=== PATIENT | male | born 1950 | race Caucasian/White ===

== ENCOUNTER 2018-11-28 20:47 | Observation (INO) | payer MEDICARE ==
[2018-11-28] MEDS ORDERED: ACETAMINOPHEN 325 MG TABLET PO ONE (21:04)
[2018-11-28] MEDS ORDERED: IPRATROPIUM/ALBUTEROL 0.5-2.5 MG/3 ML AMPUL NEB ONE (21:05)
[2018-11-28] MEDS ORDERED: METHYLPREDNISOLONE INJ 125 MG/2 ML SDV IV ONE (21:05)
--- NOTE | 2018-11-28 22:14 | RADIOLOGY REPORT (SQ) ---
EXAM DESCRIPTION: XR CHEST 2 VIEWS COMPLETED DATE/TME: 11/28/2018 21:05 CLINICAL HISTORY: 68 years, Male, fever, sepsis EXAM DESCRIPTION: CLINICAL HISTORY: fever, sepsis COMPARISON: None. FINDINGS: Two views of the chest are submitted. There is a small right pleural effusion. There is atelectasis at the right anterior lung base. Cardiac silhouette appears normal. No other focal parenchymal or pleural disease. No acute bony abnormality. There is no significant pulmonary vascular engorgement. IMPRESSION: Small right pleural effusion best seen on the lateral view.
--- NOTE | 2018-11-28 22:21 | ER Document Report ---
ED Medical Screen (RME) - General Chief Complaint: Shortness Of Breath Stated Complaint: SHORTNESS OF BREATH,RACING HEART,CHILLS Time Seen by Provider: 11/28/18 22:13 TRAVEL OUTSIDE OF THE [place] IN LAST 30 DAYS: No - HPI Notes: 11/28/18 22:27 68 YEAR OLD MALE TO THE ED WITH WITH C/O SHORTNESS OF BREATH THAT BEGAN SUDDENLY TONIGHT. STATES THAT HE STARTED TO FEEL POORLY THIS AFTERNOON SO HE DECIDED TO LAY DOWN. STATES THAT HE GOT PROGRESSIVELY MORE SOB WHEN HE WAS LAYING DOWN. STATES THAT HE WAS REALLY OUT OF BREATH JUST PRIOR TO COMING TO THE ER. HE HAS NO HX OF LUNG DISEASE. HE IS NOT ON BLOOD THINNERS. DOES ADMIT HE JUST DROVE DOWN FROM [place]. HE DENIES ANY NEW LEG SWELLING. STATES THAT HE HAS NOT BEEN COUGHING BUT HIS BODY HAS BEEN HURTING TODAY. DENIES ANY SICK CONTACTS. FORMER SMOKER. Physical Exam - Vital signs Vitals: Temp Pulse Resp BP Pulse Ox 101.9 F H 135 H 18 151/76 H 92 11/28/18 20:58 11/28/18 20:58 11/28/18 20:58 11/28/18 20:58 11/28/18 20:58 Interpretation: Tachycardic, Febrile - Respiratory Respiratory status: Other - SLIGHTLY BREATHY WHEN BREATHING -- WALKING SEEMS TO MAKE IT A LITTLE WORSE. NO ACCESSORY MUSCLE USE. NO TRIPODING, NO DIAPHORESIS. Breath sounds: Decreased air movement. No: Rales, Rhonchi, Wheezing Chest palpation: Normal Course - Vital Signs Vital signs: Temp Pulse Resp BP Pulse Ox 101.9 F H 135 H 18 151/76 H 92 11/28/18 20:58 11/28/18 20:58 11/28/18 20:58 11/28/18 20:58 11/28/18 20:58
[2018-11-28] MEDS ORDERED: NORMAL SALINE 500 ML IV ONE (22:26)
--- NOTE | 2018-11-28 23:03 | ER Document Report ---
ED General - General Chief Complaint: Shortness Of Breath Stated Complaint: SHORTNESS OF BREATH,RACING HEART,CHILLS Time Seen by Provider: 11/28/18 22:13 Notes: Patient is a 68-year-old male that comes to the emergency department for chief complaint of weakness, shortness of breath, chills that started this evening. He was found to have a fever. He denies abdominal pain, vomiting, chest pain, dysuria, flank pain. He is visiting here from [place] with his family, he has a history of hypertension, hyperlipidemia, neurogenic bladder with self- catheterization, PHYLLIS. He has had his pneumonia vaccine reportedly. He is a former smoker. He denies cardiac history. TRAVEL OUTSIDE OF THE [place] IN LAST 30 DAYS: No - Related Data Allergies/Adverse Reactions: aspirin Allergy (Verified 11/28/18 22:31) tamsulosin [From Flomax] Allergy (Verified 11/29/18 00:35) Past Medical History - General Information source: Patient, Relative - Social History Smoking Status: Former Smoker Frequency of alcohol use: None Drug Abuse: None Lives with: Family Family History: Reviewed & Not Pertinent - Past Medical History Cardiac Medical History: Reports: Hx Hypercholesterolemia, Hx Hypertension Pulmonary Medical History: Reports: Hx Sleep Apnea Renal/ Medical History: Reports: Other - Neurogenic bladder, self- catheterization status - Immunizations Hx Diphtheria, Pertussis, Tetanus Vaccination: Yes Review of Systems - Review of Systems Constitutional: See HPI EENT: No symptoms reported Cardiovascular: No symptoms reported Respiratory: See HPI Gastrointestinal: No symptoms reported Genitourinary: See HPI Male Genitourinary: No symptoms reported Musculoskeletal: No symptoms reported Skin: No symptoms reported Hematologic/Lymphatic: No symptoms reported Neurological/Psychological: No symptoms reported Physical Exam - Vital signs Vitals: Temp Pulse Resp BP Pulse Ox 101.9 F H 135 H 18 151/76 H 92 11/28/18 20:58 11/28/18 20:58 11/28/18 20:58 11/28/18 20:58 11/28/18 20:58 - Notes Notes: GENERAL: Alert and interactive, flushed, mildly ill-appearing HEAD: Normocephalic, atraumatic. EYES: Pupils equal, round, and reactive to light. Extraocular movements intact. ENT: Oral mucosa moist, tongue midline. Oropharynx unremarkable. Airway patent. Nares patent, no nasal septal hematoma, TM's intact. NECK: Full range of motion. Supple. Trachea midline. LUNGS: Clear to auscultation bilaterally, no wheezes, rales, or rhonchi. No respiratory distress. No tachypnea. HEART: Borderline tachycardia, normal rhythm, no murmur. ABDOMEN: Soft, non-tender. Non-distended. Bowel sounds present in all 4 quadrants. GENITOURINARY: No swelling, tenderness, or concerning findings noted. EXTREMITIES: Moves all 4 extremities spontaneously. No edema, normal radial and dorsalis pedis pulses bilaterally. No cyanosis. BACK: no cervical, thoracic, lumbar midline tenderness. No saddle anesthesia, normal distal neurovascular exam. Moves all extremities in full range of motion. NEUROLOGICAL: Alert and oriented x3. Normal speech. Cranial nerves II through XII grossly intact. PSYCH: Normal affect, normal mood. SKIN: Flushed but otherwise unremarkable Course - Re-evaluation Re-evalutation: Initially patient tachycardic, febrile, flushed, having chills. After Tylenol, IV fluids, patient is significantly improved in appearance. He is only borderline tachycardic now. Lungs clear, no hypoxia on my evaluation, no respiratory distress. Because of his history of self-catheterization I do suspect urinary tract infection as the most likely source. His abdomen is soft and benign. CBC shows leukocyte doses at 12.9 with elevation of neutrophils but no bandemia. Lactic acid is 2.2. Blood cultures and urine cultures pending. Chest x-ray is unremarkable except for possible small effusion, no noted consolidation. Urine does show infection on catheterized sample. Starting on Rocephin. Discussed with patient and family. Because of his age, fever, tachycardia, infection, and lack of local follow-up because he is out of town patient will be discussed with hospitalist for admission. Discussed with Dr. Contreras, hospitalist, patient admitted to observation status. - Vital Signs Vital signs: Temp Pulse Resp BP Pulse Ox 97.9 F 86 18 108/55 L 97 11/29/18 03:42 11/29/18 03:42 11/29/18 03:42 11/29/18 03:42 11/29/18 03:42 - Laboratory Result Diagrams: 11/29/18 05:24 11/29/18 05:24 Laboratory results interpreted by me: 11/28/18 11/28/18 11/28/18 21:11 22:50 22:50 WBC 12.9 H Seg Neuts % (Manual) 82 H Lymphocytes % (Manual) 9 L Abs Neuts (Manual) 11.2 H BUN 22 H Glucose 120 H Lactic Acid TSH Urine Blood SMALL H Urine Nitrite POSITIVE H Ur Leukocyte Esterase MODERATE H 11/28/18 11/28/18 22:50 22:50 WBC Seg Neuts % (Manual) Lymphocytes % (Manual) Abs Neuts (Manual) BUN Glucose Lactic Acid 2.2 H TSH 7.21 H Urine Blood Urine Nitrite Ur Leukocyte Esterase Discharge - Discharge Clinical Impression: Chills, Tachycardia Fever Qualifiers: Fever type: unspecified Qualified Code(s): R50.9 - Fever, unspecified Urinary tract infection Qualifiers: Urinary tract infection type: site unspecified Hematuria presence: without hematuria Qualified Code(s): N39.0 - Urinary tract infection, site not specified Condition: Stable Disposition: ADMITTED OBSERVATION Admitting Provider: Diane (Hospitalist) Unit Admitted: Telemetry
[2018-11-28] MEDS ORDERED: NORMAL SALINE 1000 ML 1,000 ML IV ONE (23:04)
[2018-11-28 23:08] LABS: VENOUS BLOOD BASE EXCESS 0.5 mmol/L; VENOUS BLOOD PCO2 40.1 mmHg (35-63); VENOUS BLOOD PH 7.41 (7.30-7.42)
[2018-11-28] MEDS ORDERED: ACETAMINOPHEN 325 MG TABLET ONE (23:08)
[2018-11-28 23:10] LABS: HEMATOCRIT 40.8 % (37.9-51.0); MEAN CORPUSCULAR HEMOGLOBIN 30.6 pg (27.0-33.4); MEAN CORPUSCULAR HGB CONC 34.2 g/dL (32.0-36.0); MEAN CORPUSCULAR VOLUME 89 fl (80-97); PLATELET COUNT 154 10^3/uL (150-450); RED BLOOD COUNT 4.57 10^6/uL (4.35-5.55); RED CELL DISTRIBUTION WIDTH 13.4 % (11.5-14.0); WHITE BLOOD COUNT 12.9 10^3/uL (4.0-10.5)
[2018-11-28] MEDS: ALBUTEROL SULFATE 0.083% NEB 2.5 MG/3 ML AMPUL NEB SCH (23:10)
[2018-11-28 23:14] LABS: INTERNATIONAL RATION (INR) 1.05; PROTHROMBIN TIME 13.7 SEC (11.4-15.4)
[2018-11-28 23:30] LABS: ALANINE AMINOTRANSFERASE 32 U/L (21-72); ALBUMIN 4.4 g/dL (3.5-5.0); ALKALINE PHOSPHATASE 47 U/L (38-126); ANION GAP 10 (5-19); ASPARTATE AMINO TRANSFERASE 33 U/L (17-59); BILIRUBIN,DIRECT 0.2 mg/dL (0.0-0.4); BILIRUBIN,TOTAL 0.8 mg/dL (0.2-1.3); BLOOD UREA NITROGEN 22 mg/dL (7-20); CALCIUM 9.3 mg/dL (8.4-10.2); CARBON DIOXIDE 23 mmol/L (22-30); CHLORIDE 107 mmol/L (98-107); CREATINE KINASE 127 U/L (55-170); GLUCOSE 120 mg/dL (75-110); POTASSIUM 3.8 mmol/L (3.6-5.0); SODIUM 140.2 mmol/L (137-145); TOTAL PROTEIN 7.2 g/dL (6.3-8.2)
[2018-11-28 23:35] LABS: ABSOLUTE LYMPHOCYTES# (MANUAL) 1.2 10^3/uL (0.5-4.7); ABSOLUTE MONOCYTES # (MANUAL) 0.4 10^3/uL (0.1-1.4); BAND NEUTROPHILS % (MANUAL) 5 % (3-5); BASOPHILS % (MANUAL) 1 % (0-2); EOSINOPHILS % (MANUAL) 0 % (0-6); LYMPHOCYTES % (MANUAL) 9 % (13-45); MONOCYTES % (MANUAL) 3 % (3-13); RBC MORPHOLOGY COMMENT NORMO-CYTIC/CHROMIC; SEGMENTED NEUTROPHILS % (MAN) 82 % (42-78); TOTAL CELLS COUNTED 100
[2018-11-28 23:37] LABS: PLATELET COMMENT ADEQUATE
[2018-11-28 23:44] LABS: APPEARANCE,URINE SLIGHTLY-CLOUDY; BILIRUBIN,URINE NEGATIVE (NEGATIVE); COLOR,URINE YELLOW; GLUCOSE, URINE NEGATIVE (NEGATIVE); KETONES,URINE NEGATIVE (NEGATIVE); LEUKOCYTE ESTERASE,URINE MODERATE (NEGATIVE); NITRITE,URINE POSITIVE (NEGATIVE); PROTEIN,URINE NEGATIVE (NEGATIVE); URINE SPECIFIC GRAVITY 1.018; UROBILINOGEN,URINE NEGATIVE mg/dL (<2.0)
[2018-11-28 23:47] LABS: CREATINE KINASE MB 1.03 ng/mL (<4.55); NT PRO BNP 83 pg/mL (5-900)
[2018-11-28 23:48] LABS: TROPONIN I < 0.012 ng/mL
[2018-11-29] MEDS ORDERED: CEFTRIAXONE 1 GM/D5W RTU 1 GM/50 ML RTUPB IV ONE (00:01)
[2018-11-29] MEDS ORDERED: ONDANSETRON HCL INJ/PF 4 MG/2 ML SDV IV PRN (00:48)
[2018-11-29] MEDS ORDERED: MAG HYDROX/AL HYDROX/SIMETH SUSP 30 ML UDCUP PO PRN (00:48)
[2018-11-29] MEDS ORDERED: LEVALBUTEROL HCL NEB 0.63 MG/3 ML AMPUL NEB PRN (00:53)
[2018-11-29] MEDS ORDERED: MORPHINE SULFATE 10 MG/ML INJ IV PRN ×4 (00:53→01:00)
[2018-11-29] MEDS ORDERED: METOPROLOL TARTRATE PF/INJ 5 MG/5 ML SDV IV PRN (00:53)
[2018-11-29] MEDS ORDERED: ACETAMINOPHEN 325 MG TABLET PO PRN (00:53)
[2018-11-29 02:12] LABS: FREE T4 (FREE THYROXINE) 0.86 ng/dL (0.78-2.19)
[2018-11-29 02:25] LABS: THYROID STIMULATING HORMONE 7.21 uIU/mL (0.47-4.68)
[2018-11-29] MEDS: RINGERS SOLUTION,LACTATED 1,000 ML IV PRN ×2 (03:45→12:01)
--- NOTE | 2018-11-29 04:24 | PDOC H&P ---
History of Present Illness Admission Date/PCP: 11/29/2018 00:14 No local PCP Patient complains of: Chills History of Present Illness: HOMERO RICHARD is a 68 year old male who presented to the emergency room with acute severe chills. Patient admits that he started feeling "ill" on the after noon of 11/28/2018 and lay down in bed but found that his symptoms became progressively worse. His symptom complex consisted of moderate to severe malaise with weakness, moderate dyspnea and severe shaking chills. Because of the rapid progression of his symptoms he presented to the emergency room. He denies prior similar episodes and has not identified any aggravating or ameliorating factors for his chills. In the emergency room he was found to have a fever and his urine showed pyuria with a positive nitrite reaction. He was noted to have an additional history of self-catheterization for emptying his bladder due to complications of benign prostatic hypertrophy. He was subsequently admitted to the hospital for further evaluation and treatment on inpatient observation status. Past Medical History Cardiac Medical History: Reports: Hyperlipidema, Hypertension Denies: Coronary Artery Disease, Myocardial Infarction Pulmonary Medical History: Denies: Asthma, Chronic Obstructive Pulmonary Disease (COPD) EENT Medical History: Denies: Cataracts, Ears - Hearing aids Neurological Medical History: Denies: Multiple Sclerosis, Seizures Endocrine Medical History: Denies: Diabetes Mellitus Type 1, Diabetes Mellitus Type 2, Hyperthyroidism, Hypothyroidism Renal/ Medical History: Reports: Other - Benign prostatic hypertrophy Denies: Chronic Kidney Disease, Nephrolithiasis Renal/ History Note: Chronic bladder outlet obstruction requiring self-catheterization for purposes of voiding Malignancy Medical History: Reports: None GI Medical History: Denies: Cirrhosis, Hepatitis Musculoskeltal Medical History: Denies: Arthritis, Gout Skin Medical History: Denies: Eczema, Psoriasis Psychiatric Medical History: Denies: Alcohol Dependency, Substance Abuse, Tobacco Dependency Traumatic Medical History: Reports: None Hematology: Denies: Anemia, Bleeding Tendencies Infectious Medical History: Reports: None Past Surgical History Past Surgical History: Reports: Cardiac Catheterization, Herniorrhaphy Social History Information Source: Patient Lives with: Spouse/Significant other Smoking Status: Never Smoker Frequency of Alcohol Use: Occasional Hx Recreational Drug Use: No Drugs: None Hx Prescription Drug Abuse: No - Advance Directive Resuscitation Status: Full Code Surrogate healthcare decision maker:: Kindra Terry Family History Family History: DM, Hypertension. denies: CAD, Malignancy Parental Family History Reviewed: Yes Children Family History Reviewed: No Sibling(s) Family History Reviewed.: Yes Medication/Allergy Allergies/Adverse Reactions: aspirin Allergy (Verified 11/28/18 22:31) tamsulosin [From Flomax] Allergy (Verified 11/29/18 00:35) Review of Systems Constitutional: PRESENT: as per HPI, chills, weakness - Generalized weakness, other - Malaise Eyes: ABSENT: visual disturbances, other - Eye pain Ears: ABSENT: hearing changes, other - Ear pain Nose, Mouth, and Throat: ABSENT: mouth pain, sore throat Cardiovascular: ABSENT: chest pain, palpitations Respiratory: ABSENT: cough, dyspnea Gastrointestinal: ABSENT: abdominal pain, constipation, diarrhea, nausea, vomiting Genitourinary: ABSENT: dysuria, hematuria Musculoskeletal: ABSENT: back pain, joint swelling, muscle weakness Integumentary: ABSENT: pruritus, rash Neurological: ABSENT: confusion, convulsions, focal weakness, memory loss, synco pe Psychiatric: ABSENT: anxiety, depression Endocrine: ABSENT: cold intolerance, heat intolerance Hematologic/Lymphatic: ABSENT: easy bleeding, easy bruising Physical Exam Vital Signs: Temp Pulse Resp BP Pulse Ox 101.9 F H 135 H 25 H 129/86 H 96 11/28/18 20:58 11/28/18 20:58 11/28/18 23:01 11/28/18 23:01 11/28/18 23:01 Intake & Output 11/27/18 11/28/18 11/29/18 23:59 23:59 23:59 Intake Total 1000 Balance 1000 Weight 94.9 kg General appearance: PRESENT: no acute distress, cooperative Head exam: PRESENT: atraumatic, normocephalic Eye exam: PRESENT: conjunctiva pink. ABSENT: conjunctival injection, scleral icterus Ear exam: PRESENT: normal external ear exam. ABSENT: bleeding, drainage Mouth exam: PRESENT: dry mucosa, neck supple Neck exam: ABSENT: thyromegaly, tracheal deviation Respiratory exam: PRESENT: clear to auscultation tomasa, symmetrical, unlabored Cardiovascular exam: PRESENT: RRR. ABSENT: clicks, gallop, rubs Pulses: PRESENT: normal radial pulses, normal dorsalis pedis pul Vascular exam: PRESENT: normal capillary refill. ABSENT: pallor GI/Abdominal exam: PRESENT: normal bowel sounds, soft Rectal exam: PRESENT: deferred Extremities exam: ABSENT: joint swelling, pedal edema Musculoskeletal exam: PRESENT: full ROM, normal inspection Neurological exam: PRESENT: alert, oriented to person, oriented to place, oriented to time, oriented to situation, CN II-XII grossly intact. ABSENT: motor sensory deficit Psychiatric exam: PRESENT: appropriate affect, normal mood Skin exam: PRESENT: dry, intact, warm. ABSENT: jaundice, rash, urticaria Results Laboratory Results: 11/28/18 22:50 11/28/18 22:50 11/28/18 11/28/18 11/28/18 21:11 22:50 22:50 WBC 12.9 H RBC 4.57 Hgb 14.0 Hct 40.8 MCV 89 MCH 30.6 MCHC 34.2 RDW 13.4 Plt Count 154 Seg Neutrophils % Not Reportable Lymphocytes % Not Reportable Monocytes % Not Reportable Eosinophils % Not Reportable Basophils % Not Reportable Absolute Neutrophils Not Reportable Absolute Lymphocytes Not Reportable Absolute Monocytes Not Reportable Absolute Eosinophils Not Reportable Absolute Basophils Not Reportable VBG pH VBG pCO2 VBG HCO3 VBG Base Excess Sodium 140.2 Potassium 3.8 Chloride 107 Carbon Dioxide 23 Anion Gap 10 BUN 22 H Creatinine 0.88 Est GFR ( Amer) > 60 Est GFR (Non-Af Amer) > 60 Glucose 120 H Lactic Acid Calcium 9.3 Total Bilirubin 0.8 AST 33 ALT 32 Alkaline Phosphatase 47 Total Protein 7.2 Albumin 4.4 Urine Color YELLOW Urine Appearance SLIGHTLY-CLOUDY Urine pH 6.0 Ur Specific [place] 1.018 Urine Protein NEGATIVE Urine Glucose (UA) NEGATIVE Urine Ketones NEGATIVE Urine Blood SMALL H Urine Nitrite POSITIVE H Ur Leukocyte Esterase MODERATE H Urine WBC (Auto) 107 Urine RBC (Auto) 7 11/28/18 11/28/18 22:50 22:50 WBC RBC Hgb Hct MCV MCH MCHC RDW Plt Count Seg Neutrophils % Lymphocytes % Monocytes % Eosinophils % Basophils % Absolute Neutrophils Absolute Lymphocytes Absolute Monocytes Absolute Eosinophils Absolute Basophils VBG pH 7.41 VBG pCO2 40.1 VBG HCO3 25.0 VBG Base Excess 0.5 Sodium Potassium Chloride Carbon Dioxide Anion Gap BUN Creatinine Est GFR ( Amer) Est GFR (Non-Af Amer) Glucose Lactic Acid 2.2 H Calcium Total Bilirubin AST ALT Alkaline Phosphatase Total Protein Albumin Urine Color Urine Appearance Urine pH Ur Specific [place] Urine Protein Urine Glucose (UA) Urine Ketones Urine Blood Urine Nitrite Ur Leukocyte Esterase Urine WBC (Auto) Urine RBC (Auto) 11/28/18 11/28/18 22:50 22:50 Creatine Kinase 127 CK-MB (CK-2) 1.03 Troponin I < 0.012 NT-Pro-B Natriuret Pep 83 Impressions: Chest X-Ray 11/28/18 21:05 IMPRESSION: Small right pleural effusion best seen on the lateral view. Assessment and Plan - Diagnosis (1) Pyuria Is this a current diagnosis for this admission?: Yes Plan: Patient be treated with IV Rocephin initially. Urine and blood cultures are pending. Daily CBC and metabolic profile tests will be obtained. (2) Chills Is this a current diagnosis for this admission?: Yes Plan: Patient's chills be treated by controlling his fever with antibiotic therapy and also utilization of acetaminophen and ibuprofen if required. (3) Tachycardia Is this a current diagnosis for this admission?: Yes Plan: Patient's tachycardia will be treated with IV fluid as well as fever reduction with Tylenol and or Motrin. Patient's vital signs were monitored closely throughout his hospital course. (4) Elevated temperature Is this a current diagnosis for this admission?: Yes Plan: Patient's elevated temperature will be treated with Tylenol and/or ibuprofen as appropriate. Vital signs be checked frequently throughout his hospital course. (5) Malaise Is this a current diagnosis for this admission?: Yes Plan: Patient's family is to be treated by utilization of IV fluids as well as symptomatic and supportive cares. He will use Tylenol and/or ibuprofen as need ed for his general discomfort. A daily CBC and metabolic profile will be obtained. - Time Time Spent with patient: 25-34 minutes Medications reviewed and adjusted accordingly: Yes Anticipated discharge: Home - Inpatient Certification Based on my medical assessment, after consideration of the patient's comorbidities, presenting symptoms, or acuity I expect that the services needed warrant INPATIENT care.: No I certify that my determination is in accordance with my understanding of Medicare's requirements for reasonable and necessary INPATIENT services [42 CFR 412.3e].: No Medical Necessity: Need Close Monitoring Due to Risk of Patient Decompensation, Risk of Complication if Not Cared For in Hospital, Risk of Diagnosis Which Will Require Inpatient Eval/Care/Monitoring
--- NOTE | 2018-11-29 04:28 | ADVANCED CARE ---
- Diagnosis (1) Pyuria Diagnosis Current: Yes (2) Chills Diagnosis Current: Yes (3) Tachycardia Diagnosis Current: Yes (4) Elevated temperature Diagnosis Current: Yes (5) Malaise Diagnosis Current: Yes Attendance: The patient, Kim Bowser his spouse and myself. Resuscitation Status: Full Code Discussion: Patient has chosen after brief discussion to be full code for resuscitation status in the event of any cardiac or respiratory arrest that may occur during his hospital course. Additionally he has named Kindra Terry his daughter as his designated surrogate medical decision maker. Care Planning Goals: 1. Patient will be full CODE STATUS for this hospitalization. 2. Kindra Terry is the patient's designated surrogate medical decision- maker. Document(s) Completed: Following information be entered into the patient's permanent medical record as well as his current record and orders via EMR entry: 1. Patient will be full CODE STATUS for this hospitalization. 2. Kindra Terry is the patient's designated surrogate medical decision- maker. Time Spent: 6 minutes
[2018-11-29 05:39] LABS: HEMATOCRIT 40.9 % (37.9-51.0); HEMOGLOBIN 13.8 g/dL (13.5-17.0); MEAN CORPUSCULAR HEMOGLOBIN 30.2 pg (27.0-33.4); MEAN CORPUSCULAR HGB CONC 33.6 g/dL (32.0-36.0); MEAN CORPUSCULAR VOLUME 90 fl (80-97); PLATELET COUNT 130 10^3/uL (150-450); RED BLOOD COUNT 4.56 10^6/uL (4.35-5.55); RED CELL DISTRIBUTION WIDTH 13.3 % (11.5-14.0); WHITE BLOOD COUNT 11.1 10^3/uL (4.0-10.5)
[2018-11-29 05:53] LABS: ANION GAP 6 (5-19); BLOOD UREA NITROGEN 18 mg/dL (7-20); CALCIUM 8.5 mg/dL (8.4-10.2); CARBON DIOXIDE 24 mmol/L (22-30); CHLORIDE 112 mmol/L (98-107); CHOLESTEROL 160.38 mg/dL (0-200); GLUCOSE 97 mg/dL (75-110); POTASSIUM 4.4 mmol/L (3.6-5.0); TRIGLYCERIDES 106 mg/dL (<150)
[2018-11-29 06:04] LABS: DIRECT LDL 96 mg/dL (<100)
[2018-11-29] MEDS: HEPARIN SOD (PORCINE) 5,000 UNIT/ML 1 ML SYRINGE SUBCUT SCH ×3 (06:31→22:39)
[2018-11-29] MEDS: LEVOFLOXACIN 500 MG/D5W RTU 500 MG/100 ML RTUPB IV SCH (09:13)
[2018-11-29] MEDS: FAMOTIDINE 20 MG TABLET PO SCH ×2 (09:14→22:39)
[2018-11-29] MEDS: DOCUSATE SODIUM 100 MG/10 ML UDC PO SCH ×2 (09:14→17:50)
--- NOTE | 2018-11-29 12:47 | Progress Note ---
Provider Note Provider Note: 11/29/2018-this elderly male admitted with tachycardia mellitus fever and UTI. Urine cultures came back positive for gram-negative rods presently on IV Rocephin 1 g daily IV levo floxacillin added to the medication. He has a T-max of 101 this morning. Vital signs are stable with a blood pressure of 110/65 temperature of 99.1 at this time. Heart rate is improved to 86. WBC count came down to 11.1 blood sugar is 97 creatinine is 0.84. Plan is to continue the present management. Physical examination comfortable in the bed communicating well chest bilateral entry was decreased no wheezing no crepitations CVS S1-S2 abdomen soft obese bowel sounds are present extremities no pedal edema. I am going to follow him on daily basis.
[2018-11-29] MEDS: CEFTRIAXONE 1 GM/D5W RTU 1 GM/50 ML RTUPB IV SCH (22:39)
--- NOTE | 2018-11-29 22:43 | EKG REPORT ---
SEVERITY:- ABNORMAL ECG - SINUS TACHYCARDIA PROBABLE LEFT ATRIAL ABNORMALITY BORDERLINE INFERIOR Q WAVES NONSPECIFIC T ABNORMALITIES, LATERAL LEADS : Confirmed by: Kenya Brooke MD 29-Nov-2018 22:42:46
[2018-11-30] MEDS: HEPARIN SOD (PORCINE) 5,000 UNIT/ML 1 ML SYRINGE SUBCUT SCH ×3 (05:37→21:35)
[2018-11-30 05:45] LABS: HEMATOCRIT 36.8 % (37.9-51.0); HEMOGLOBIN 12.8 g/dL (13.5-17.0); MEAN CORPUSCULAR HEMOGLOBIN 31.2 pg (27.0-33.4); MEAN CORPUSCULAR HGB CONC 34.9 g/dL (32.0-36.0); MEAN CORPUSCULAR VOLUME 89 fl (80-97); PLATELET COUNT 110 10^3/uL (150-450); RED BLOOD COUNT 4.12 10^6/uL (4.35-5.55); RED CELL DISTRIBUTION WIDTH 13.2 % (11.5-14.0); WHITE BLOOD COUNT 6.8 10^3/uL (4.0-10.5)
[2018-11-30 06:11] LABS: ANION GAP 9 (5-19); BLOOD UREA NITROGEN 12 mg/dL (7-20); CALCIUM 7.9 mg/dL (8.4-10.2); CARBON DIOXIDE 22 mmol/L (22-30); CHLORIDE 106 mmol/L (98-107); GLUCOSE 141 mg/dL (75-110); POTASSIUM 3.7 mmol/L (3.6-5.0); SODIUM 136.7 mmol/L (137-145)
--- NOTE | 2018-11-30 11:28 | PDOC PROGRESS REPORT ---
Subjective Progress Note for:: 11/30/18 Subjective:: 68 year old male who presented to the emergency room with acute severe chills. Patient admits that he started feeling "ill" on the afternoon of 11/28/2018 and lay down in bed but found that his symptoms became progressively worse. His symptom complex consisted of moderate to severe malaise with weakness, moderate dyspnea and severe shaking chills. Because of the rapid progression of his symptoms he presented to the emergency room. He denies prior similar episodes and has not identified any aggravating or ameliorating factors for his chills. In the emergency room he was found to have a fever and his urine showed pyuria with a positive nitrite reaction. He was noted to have an additional history of self-catheterization for emptying his bladder due to complications of benign prostatic hypertrophy. He was subsequently admitted to the hospital for further evaluation and treatment on inpatient observation status. [id number]-old male admitted with fever malaise fatigue and UTI urine culture came back positive for gram-negative rods blood culture came back positive for gram-negative rods presently on IV Rocephin and levo floxacillin. Patient is feeling better today. T-max is 99.1. Waiting for the complete culture report and sensitivity report. in My opinion patient may need to stay at least another day. Reason For Visit: UTI Physical Exam Vital Signs: Temp Pulse Resp BP Pulse Ox 99.3 F 77 14 116/63 95 11/30/18 08:20 11/30/18 08:20 11/30/18 08:20 11/30/18 08:20 11/30/18 08:20 Intake & Output 11/29/18 11/30/18 12/01/18 06:59 06:59 06:59 Intake Total 1250 2470 Output Total 1450 Balance 1250 1020 Weight 94.3 kg 97.8 kg General appearance: PRESENT: no acute distress Head exam: PRESENT: atraumatic Eye exam: PRESENT: PERRLA Mouth exam: PRESENT: moist, tongue midline Teeth exam: PRESENT: poor dentation Neck exam: ABSENT: carotid bruit, JVD, lymphadenopathy, thyromegaly Respiratory exam: PRESENT: clear to auscultation tomasa. ABSENT: rales, rhonchi, wheezes Cardiovascular exam: PRESENT: RRR. ABSENT: diastolic murmur, rubs, systolic murmur GI/Abdominal exam: PRESENT: normal bowel sounds, soft. ABSENT: distended, guarding, mass, organolmegaly, rebound, tenderness Rectal exam: PRESENT: deferred Extremities exam: PRESENT: full ROM. ABSENT: calf tenderness, clubbing, pedal edema Neurological exam: PRESENT: alert, awake, oriented to person, oriented to place, oriented to time, oriented to situation, CN II-XII grossly intact. ABSENT: motor sensory deficit Psychiatric exam: PRESENT: appropriate affect, normal mood. ABSENT: homicidal ideation, suicidal ideation Skin exam: PRESENT: dry, intact, warm. ABSENT: cyanosis, rash Results Laboratory Results: 11/30/18 05:05 11/30/18 05:05 11/30/18 11/30/18 05:05 05:05 WBC 6.8 RBC 4.12 L Hgb 12.8 L Hct 36.8 L MCV 89 MCH 31.2 MCHC 34.9 RDW 13.2 Plt Count 110 L Sodium 136.7 L Potassium 3.7 Chloride 106 Carbon Dioxide 22 Anion Gap 9 BUN 12 Creatinine 0.85 Est GFR ( Amer) > 60 Est GFR (Non-Af Amer) > 60 Glucose 141 H Calcium 7.9 L 11/28/18 21:11 Catheterized Urine Urine Culture - Final Klebsiella Pneumoniae 11/28/18 11/28/18 22:50 22:50 Creatine Kinase 127 CK-MB (CK-2) 1.03 Troponin I < 0.012 NT-Pro-B Natriuret Pep 83 Impressions: Chest X-Ray 11/28/18 21:05 IMPRESSION: Small right pleural effusion best seen on the lateral view. Assessment and Plan - Diagnosis (1) Urinary tract infection Qualifiers: Urinary tract infection type: site unspecified Hematuria presence: without hematuria Qualified Code(s): N39.0 - Urinary tract infection, site not specified Is this a current diagnosis for this admission?: Yes Plan: 11/30/2018-patient admitted with fever tachycardia fatigue and malaise eyes urine culture is positive for gram-negative rods and blood culture is positive for gram-negative rods presently on IV Rocephin and IV Levaquin (2) Tachycardia Is this a current diagnosis for this admission?: Yes Plan: Patient's tachycardia will be treated with IV fluid as well as fever reduction with Tylenol and or Motrin. Patient's vital signs were monitored closely thr oughout his hospital course. 11/30/2018-patient came in with tachycardia which was resolving heart rate today is 90. (3) Sepsis Is this a current diagnosis for this admission?: Yes Plan: 11/30/2018-patient came in with sepsis in my opinion urine cultures positive for gram-negative rods, blood cultures are positive for gram-negative rods, patient has a high-grade fever at the time of admission tachycardic. In my opinion he meets the criteria for sepsis. - Time Time Spent with patient: 25-34 minutes Medications reviewed and adjusted accordingly: Yes Anticipated discharge: Home
[2018-11-30] MEDS: LEVOFLOXACIN 500 MG/D5W RTU 500 MG/100 ML RTUPB IV SCH (11:47)
[2018-11-30] MEDS: FAMOTIDINE 20 MG TABLET PO SCH ×2 (11:47→21:35)
[2018-11-30] MEDS: DOCUSATE SODIUM 100 MG/10 ML UDC PO SCH ×2 (11:52→18:06)
[2018-11-30] MEDS: CEFTRIAXONE 1 GM/D5W RTU 1 GM/50 ML RTUPB IV SCH (21:35)
[2018-12-01] MEDS: HEPARIN SOD (PORCINE) 5,000 UNIT/ML 1 ML SYRINGE SUBCUT SCH (05:39)
[2018-12-01 06:53] LABS: ABSOLUTE EOSINOPHILS # (AUTO) 0.1 10^3/uL (0.0-0.6); ABSOLUTE LYMPHOCYTES (AUTO) 1.2 10^3/uL (0.5-4.7); ABSOLUTE MONOCYTES (AUTO) 0.7 10^3/uL (0.1-1.4); ABSOLUTE NEUT (AUTO) 3.5 10^3/uL (1.7-8.2); BASOPHILS % (AUTO) 0.5 % (0-2); EOSINOPHILS % (AUTO) 1.2 % (0-6); HEMATOCRIT 37.7 % (37.9-51.0); HEMOGLOBIN 12.9 g/dL (13.5-17.0); LYMPHOCYTES % (AUTO) 21.8 % (13-45); MEAN CORPUSCULAR HEMOGLOBIN 30.5 pg (27.0-33.4); MEAN CORPUSCULAR HGB CONC 34.3 g/dL (32.0-36.0); MEAN CORPUSCULAR VOLUME 89 fl (80-97); MONOCYTES % (AUTO) 12.5 % (3-13); PLATELET COUNT 119 10^3/uL (150-450); RED BLOOD COUNT 4.24 10^6/uL (4.35-5.55); RED CELL DISTRIBUTION WIDTH 13.3 % (11.5-14.0); TOTAL CELLS COUNTED % (AUTO) 100 %; WHITE BLOOD COUNT 5.5 10^3/uL (4.0-10.5)
[2018-12-01 07:19] LABS: ALANINE AMINOTRANSFERASE 44 U/L (21-72); ALBUMIN 3.5 g/dL (3.5-5.0); ALKALINE PHOSPHATASE 44 U/L (38-126); ANION GAP 5 (5-19); ASPARTATE AMINO TRANSFERASE 41 U/L (17-59); BILIRUBIN,DIRECT 0.3 mg/dL (0.0-0.4); BILIRUBIN,TOTAL 0.7 mg/dL (0.2-1.3); BLOOD UREA NITROGEN 10 mg/dL (7-20); CALCIUM 8.2 mg/dL (8.4-10.2); CARBON DIOXIDE 25 mmol/L (22-30); CHLORIDE 108 mmol/L (98-107); GLUCOSE 96 mg/dL (75-110); SODIUM 137.7 mmol/L (137-145); TOTAL PROTEIN 6.1 g/dL (6.3-8.2)
[2018-12-01] MEDS: LEVOFLOXACIN 500 MG/D5W RTU 500 MG/100 ML RTUPB IV SCH (10:06)
[2018-12-01] MEDS: FAMOTIDINE 20 MG TABLET PO SCH (10:14)
[2018-12-01] MEDS: DOCUSATE SODIUM 100 MG/10 ML UDC PO SCH (10:14)
--- NOTE | 2018-12-01 10:29 | PDOC DISCHARGE SUMMARY ---
General - Admit/Disc Date/PCP Admission Date/Primary Care Provider: 11/29/18 00:19 Discharge Date: 12/01/18 - Discharge Diagnosis (1) Urinary tract infection Is this a current diagnosis for this admission?: Yes Summary: 11/30/2018-patient admitted with fever tachycardia fatigue and malaise eyes urine culture is positive for gram-negative rods and blood culture is positive for gram-negative rods presently on IV Rocephin and IV Levaquin 12/01/2018-patient came into the hospital with UTI associated fever mellitus hypertension most likely septic. Urine culture came back positive for Klebsiella pneumonia during the hospital stay patient received IV Rocephin and IV levo floxacillin the Klebsiella pneumoniae sensitive to 2 level floxacillin patient is going home on this medication 500 mg p.o. daily for 10 days. (2) Tachycardia Is this a current diagnosis for this admission?: Yes Summary: Patient's tachycardia will be treated with IV fluid as well as fever reduction with Tylenol and or Motrin. Patient's vital signs were monitored closely throughout his hospital course. 11/30/2018-patient came in with tachycardia which was resolving heart rate today is 90. 12/01/2018-patient admitted with tachycardia most likely secondary to sepsis. He is a heart rate is improved to 67 today. Stable. He is taking metoprolol 25 mg p.o. twice daily at home advised him to hold it until he sees his primary care physician. (3) Sepsis Is this a current diagnosis for this admission?: Yes Summary: 11/30/2018-patient came in with sepsis in my opinion urine cultures positive for gram-negative rods, blood cultures are positive for gram-negative rods, patient has a high-grade fever at the time of admission tachycardic. In my opinion he meets the criteria for sepsis. 12/01/2018-most likely patient admitted with sepsis treated with IV Rocephin IV levo floxacillin urine cultures blood cultures came back positive for Klebsiella pneumonia sensitivity to levofloxacin , pt is going home on p.o. antibiotics for 10 days. - Additional Information Resuscitation Status: Full Code Discharge Diet: Cardiac Discharge Activity: Activity As Tolerated Prescriptions: Levofloxacin [Levaquin 500 mg Tablet] 500 mg PO DAILY #10 tablet Home Medications: Lovastatin [Mevacor] 20 mg PO DAILY 11/29/18 Levofloxacin [Levaquin 500 mg Tablet] 500 mg PO DAILY #10 tablet 12/01/18 History of Present Illness History of Present Illness: HOMERO RICHARD is a 68 year old male 68 year old male who presented to the emergency room with acute severe chills. Patient admits that he started feeling "ill" on the afternoon of 11/28/2018 and lay down in bed but found that his symptoms became progressively worse. His symptom complex consisted of moderate to severe malaise with weakness, moderate dyspnea and severe shaking chills. Because of the rapid progression of his symptoms he presented to the emergency room. He denies prior similar episodes and has not identified any aggravating or ameliorating factors for his chills. In the emergency room he was found to have a fever and his urine showed pyuria with a positive nitrite reaction. He was noted to have an additional history of self-catheterization for emptying his bladder due to complications of benign prostatic hypertrophy. He was subsequently admitted to the hospital for further evaluation and treatment on inpatient observation status. Physical Exam Vital Signs: Temp Pulse Resp BP Pulse Ox 97.6 F 32 L 16 118/72 98 12/01/18 08:00 12/01/18 08:00 12/01/18 08:00 12/01/18 08:00 12/01/18 08:00 Intake & Output 11/30/18 12/01/18 12/02/18 06:59 06:59 06:59 Intake Total 2470 1006 Output Total 1450 Balance 1020 1006 Weight 97.8 kg General appearance: PRESENT: no acute distress Head exam: PRESENT: atraumatic Eye exam: PRESENT: PERRLA Mouth exam: PRESENT: moist, tongue midline Neck exam: ABSENT: carotid bruit, JVD, lymphadenopathy, thyromegaly Respiratory exam: PRESENT: clear to auscultation tomasa. ABSENT: rales, rhonchi, wheezes Cardiovascular exam: PRESENT: RRR. ABSENT: diastolic murmur, rubs, systolic murmur GI/Abdominal exam: PRESENT: normal bowel sounds, soft. ABSENT: distended, guarding, mass, organolmegaly, rebound, tenderness Rectal exam: PRESENT: deferred Neurological exam: PRESENT: alert, awake, oriented to person, oriented to place, oriented to time, oriented to situation, CN II-XII grossly intact. ABSENT: motor sensory deficit Psychiatric exam: PRESENT: appropriate affect, normal mood. ABSENT: homicidal ideation, suicidal ideation Results Laboratory Results: 12/01/18 05:45 12/01/18 05:45 12/01/18 12/01/18 05:45 05:45 WBC 5.5 RBC 4.24 L Hgb 12.9 L Hct 37.7 L MCV 89 MCH 30.5 MCHC 34.3 RDW 13.3 Plt Count 119 L Seg Neutrophils % 64.0 Lymphocytes % 21.8 Monocytes % 12.5 Eosinophils % 1.2 Basophils % 0.5 Absolute Neutrophils 3.5 Absolute Lymphocytes 1.2 Absolute Monocytes 0.7 Absolute Eosinophils 0.1 Absolute Basophils 0.0 Sodium 137.7 Potassium 4.0 Chloride 108 H Carbon Dioxide 25 Anion Gap 5 BUN 10 Creatinine 0.73 Est GFR ( Amer) > 60 Est GFR (Non-Af Amer) > 60 Glucose 96 Calcium 8.2 L Magnesium 2.3 Total Bilirubin 0.7 AST 41 ALT 44 Alkaline Phosphatase 44 Total Protein 6.1 L Albumin 3.5 11/28/18 22:50 Blood Blood Culture - Final Klebsiella Pneumoniae 11/28/18 21:11 Catheterized Urine Urine Culture - Final Klebsiella Pneumoniae 11/28/18 11/28/18 22:50 22:50 Creatine Kinase 127 CK-MB (CK-2) 1.03 Troponin I < 0.012 NT-Pro-B Natriuret Pep 83 Impressions: Chest X-Ray 11/28/18 21:05 IMPRESSION: Small right pleural effusion best seen on the lateral view. Qualifiers - * PATIENT BEING DISCHARGED WITH ANY OF THE FOLLOWING DIAGNOSIS: No VTE patient discharged on overlapping Therapy?: No Acute Heart Failure - Is this a Heart Failure Patient?: No
[2018-12-01 11:36] VITALS: BP 108/55
== END 2018-12-01 12:45 | disposition home or self-care (01) ==
LOC: ER 20:47 → EH 11-29 00:19 → 5 11-29 03:40
PROVIDERS: ADMIT Emergency Medicine; ATTEND Emergency Medicine
DX: N39.0 Urinary tract infection, site not specified (principal); B96.1 Klebsiella pneumoniae [K. pneumoniae] as the cause of diseases classified elsewhere; R00.0 Tachycardia, unspecified; N40.1 Benign prostatic hyperplasia with lower urinary tract symptoms; N13.8 Other obstructive and reflux uropathy; R50.9 Fever, unspecified; R53.81 Other malaise; R53.1 Weakness; E66.9 Obesity, unspecified; R06.02 Shortness of breath; Z87.891 Personal history of nicotine dependence; Z82.49 Family history of ischemic heart disease and other diseases of the circulatory system
CPT/HCPCS: 93005; 99285; 96365; 36415 ×4; 87040 ×2; 87086; 84439; 82553; 82962; 82550; 83605 ×2; 83735 ×2; 84443; 85025 ×2; 85027 ×2; 85610; 87077; 87088; 80048 ×2; 80053 ×2; 81001; 84484; 87186; 84481; 83036; 82803; 80061; 83880; 71046; 93010; G0378 ×4; A9270 ×4; J1956 ×3; J2405; J7030; J7120; J0696 ×2